=== PATIENT | female | born 1975 | race Caucasian/White ===

== ENCOUNTER 2020-09-02 00:32 | Observation (INO) ==
[2020-09-02] MEDS ORDERED: Naloxone 0.4 MG/ML INJ IVP PRN (03:37)
[2020-09-02] MEDS ORDERED: Ondansetron 4 MG/2 ML VIAL IVP PRN (03:37)
[2020-09-02] MEDS ORDERED: DilTIAZem 50 MG/50 ML IV.SOLN IVC SCH (04:30)
[2020-09-02 05:32] LABS: Basophils # 0.1 K/mcL (0.0-0.2); Basophils % 0.8 %; Eosinophils # 0.2 K/mcL (0.0-0.6); Eosinophils % 1.8 %; Immature Granulocytes % 0.4 % (0-4); Immature Platelets 18.3 % (1.1-6.1); Lymphocytes # 2.2 K/mcL (0.6-4.6); Lymphocytes % 25.3 %; Mean Corpuscular HGB Conc 33.3 g/dL (31.6-35.5); Mean Corpuscular Hemoglobin 28.9 pg (28.0-33.3); Mean Corpuscular Volume 86.8 fL (83.0-100.0); Mean Platelet Volume 13.9 fL (9.4-12.4); Monocytes # 0.4 K/mcL (0.0-1.3); Monocytes % 4.9 %; Neutrophils # 5.7 K/mcL (1.6-8.9); Platelet Count 125 K/mcL (140-400); Red Blood Count 4.84 M/mcL (3.82-4.97); Red Cell Distribution Width 13.1 % (11.5-14.5); Segmented Neutrophils % 66.8 %; White Blood Count 8.5 K/mcL (4.3-11.1)
[2020-09-02 05:45] LABS: Prothrombin Time 11.8 Seconds (9.4-12.1)
[2020-09-02 05:47] LABS: Activated Partial Thrombo Time 36.3 Seconds (26.0-36.0)
[2020-09-02 05:48] LABS: Bacteria,Urine Few per hpf (None-Few); Bilirubin,Urine Negative (Negative); Blood,Urine Trace (Negative); Clarity,Urine Turbid (Clear); Color,Urine Light-Yellow (Yellow); Glucose,Urine (UA) Normal (Normal); Ketones,Urine Negative (Negative); Leukocyte Esterase,Urine Large (Negative); Mucus,Urine Few per lpf (None-Few); Nitrite,Urine Negative (Negative); Protein,Urine Trace mg/dL (Neg-Trace); RBC,Urine 30-50 per hpf (0-3); Squamous Epithelial Cell,Urine Moderate per hpf (None-Few); Urobilinogen,Urine Normal (Normal); WBC,Urine 50-100 per hpf (0-3)
[2020-09-02 05:53] LABS: Alanine Aminotransferase 29 Units/L (7-52); Albumin 3.8 g/dL (3.5-5.7); Albumin/Globulin Ratio 1.5 (1.1-2.2); Alkaline Phosphatase 83 Units/L (34-104); Aspartate Amino Transferase 25 Units/L (13-39); BUN/Creatinine Ratio 11 (6-26); Bilirubin,Total 0.4 mg/dL (0.3-1.0); Blood Urea Nitrogen 9 mg/dL (6-20); Calcium 8.6 mg/dL (8.6-10.3); Carbon Dioxide 22 mEq/L (23-29); Chloride 110 mEq/L (98-107); Cholesterol 133 mg/dL (< 200); Globulin 2.6 g/dL (2.4-3.5); Glucose 162 mg/dL (70-105); HDL Cholesterol 22 mg/dL (40-59); LDL Cholesterol,Calculated 50 mg/dL (< 100); Magnesium 1.8 mg/dL (1.6-2.6); Osmolality,Calculated 294 (280-300); Potassium 3.5 mEq/L (3.5-5.1); Sodium 141 mEq/L (136-145); Total Protein 6.4 g/dL (6.4-8.9); Triglycerides 307 mg/dL (< 150); Troponin I < 0.03 ng/mL (< 0.04); eGFR For African Americans > 60 (> 60); eGFR For Non-African Americans > 60 (> 60)
[2020-09-02] MEDS ORDERED: Perflutren Lipid Microsphere 1.3 ML in 0.9 % Sodium Chloride 8.7 ML IVP PRN (07:14)
[2020-09-02] MEDS ORDERED: *HR* Enoxaparin 100 MG/ML SYRINGE SQ SCH (12:00)
[2020-09-02] MEDS: Nystatin Cream 15 GM TUBE TP SCH ×2 (12:02→20:44)
[2020-09-02] MEDS: DilTIAZem CD (24hr) 120 MG CAP.ER.24H PO SCH (14:49)
[2020-09-02] MEDS ORDERED: Apixaban 5 MG TABLET PO SCH (21:00)
[2020-09-02] MEDS ORDERED: cefTRIAXone 1,000 MG in 0.9 % Sodium Chloride Mini Bag 100 ML IVPB SCH (23:00)
[2020-09-02] MEDS: *HR* Enoxaparin 100 MG/ML SYRINGE SQ SCH ×2 (23:30)
[2020-09-03 03:44] LABS: BUN/Creatinine Ratio 10 (6-26); Blood Urea Nitrogen 8 mg/dL (6-20); Carbon Dioxide 25 mEq/L (23-29); Chloride 108 mEq/L (98-107); Potassium 3.9 mEq/L (3.5-5.1); Sodium 139 mEq/L (136-145)
[2020-09-03 03:45] LABS: Calcium 8.6 mg/dL (8.6-10.3); Glucose 139 mg/dL (70-105); Osmolality,Calculated 289 (280-300); eGFR For African Americans > 60 (> 60); eGFR For Non-African Americans > 60 (> 60)
[2020-09-03 04:10] LABS: Hematocrit 41.8 % (35.3-44.9); Hemoglobin 13.8 g/dL (11.5-15.4); Mean Corpuscular Hemoglobin 29.4 pg (28.0-33.3); Mean Corpuscular Volume 89.1 fL (83.0-100.0); Mean Platelet Volume 13.9 fL (9.4-12.4); Red Blood Count 4.69 M/mcL (3.82-4.97); Red Cell Distribution Width 13.3 % (11.5-14.5); White Blood Count 7.3 K/mcL (4.3-11.1)
[2020-09-03] MEDS: *HR* Enoxaparin 100 MG/ML SYRINGE SQ SCH ×2 (05:57→17:20)
[2020-09-03] MEDS ORDERED: Regadenoson 0.4 MG/5 ML SYRINGE IVP ONE (06:26)
[2020-09-03] MEDS: DilTIAZem CD (24hr) 120 MG CAP.ER.24H PO SCH (10:32)
[2020-09-03] MEDS: Nystatin Cream 15 GM TUBE TP SCH ×2 (10:33→21:39)
[2020-09-03] MEDS: Aspirin Enteric Coated 81 MG Tablet PO SCH (12:58)
[2020-09-03 14:50] LABS: INR 1.1; Prothrombin Time 12.6 Seconds (9.4-12.1)
[2020-09-03] MEDS ORDERED: Warfarin perPT PO PRN (18:00)
[2020-09-03] MEDS ORDERED: *HR* Warfarin 5 MG TABLET PO ONE (18:00)
[2020-09-04] MEDS: *HR* Enoxaparin 100 MG/ML SYRINGE SQ SCH ×2 (05:09→17:21)
[2020-09-04 07:22] LABS: INR 1.1; Prothrombin Time 12.9 Seconds (9.4-12.1)
[2020-09-04 07:36] LABS: Hemoglobin 13.8 g/dL (11.5-15.4); Mean Platelet Volume 13.7 fL (9.4-12.4); Red Cell Distribution Width 13.2 % (11.5-14.5)
[2020-09-04 07:38] LABS: Hematocrit 41.6 % (35.3-44.9); Immature Platelets 20.9 % (1.1-6.1); Mean Corpuscular HGB Conc 33.2 g/dL (31.6-35.5); Mean Corpuscular Hemoglobin 28.8 pg (28.0-33.3); Mean Corpuscular Volume 86.7 fL (83.0-100.0); Red Blood Count 4.8 M/mcL (3.82-4.97); White Blood Count 7.3 K/mcL (4.3-11.1)
[2020-09-04 07:56] LABS: BUN/Creatinine Ratio 10 (6-26); Blood Urea Nitrogen 8 mg/dL (6-20); Calcium 9.2 mg/dL (8.6-10.3); Carbon Dioxide 25 mEq/L (23-29); Chloride 107 mEq/L (98-107); Glucose 141 mg/dL (70-105); Osmolality,Calculated 289 (280-300); Sodium 139 mEq/L (136-145); eGFR For African Americans > 60 (> 60); eGFR For Non-African Americans > 60 (> 60)
[2020-09-04 08:01] LABS: Estimated Average Glucose 180 mg/dl
[2020-09-04] MEDS: DilTIAZem CD (24hr) 120 MG CAP.ER.24H PO SCH (09:00)
[2020-09-04] MEDS: Aspirin Enteric Coated 81 MG Tablet PO SCH (09:00)
[2020-09-04] MEDS: Nystatin Cream 15 GM TUBE TP SCH ×2 (09:01→20:30)
[2020-09-04] MEDS ORDERED: *HR* Dextrose 50 % in Water (Vial) 50 ML VIAL IVP PRN (11:44)
[2020-09-04] MEDS ORDERED: D5% in Water 1,000 ML IVC PRN (11:44)
[2020-09-04] MEDS ORDERED: Dextrose Gel 15 GM/37.5 ML TUBE PO PRN ×2 (11:44)
[2020-09-04] MEDS: Insulin LISPRO 300 UNITS/3 ML VIAL SQ SCH (16:39)
[2020-09-04] MEDS ORDERED: *HR* Warfarin 5 MG TABLET PO ONE (18:00)
[2020-09-05 01:15] LABS: Red Blood Count 4.67 M/mcL (3.82-4.97); Red Cell Distribution Width 13.2 % (11.5-14.5)
[2020-09-05 01:17] LABS: Hematocrit 39.8 % (35.3-44.9); Hemoglobin 13.5 g/dL (11.5-15.4); Immature Platelets 20.4 % (1.1-6.1); Mean Corpuscular HGB Conc 33.9 g/dL (31.6-35.5); Mean Corpuscular Hemoglobin 28.9 pg (28.0-33.3); Mean Corpuscular Volume 85.2 fL (83.0-100.0); Mean Platelet Volume 13.6 fL (9.4-12.4); White Blood Count 7.8 K/mcL (4.3-11.1)
[2020-09-05 01:25] LABS: INR 1.1; Prothrombin Time 13.1 Seconds (9.4-12.1)
[2020-09-05] MEDS: *HR* Enoxaparin 100 MG/ML SYRINGE SQ SCH (06:05)
[2020-09-05] MEDS: Aspirin Enteric Coated 81 MG Tablet PO SCH (08:06)
[2020-09-05] MEDS: DilTIAZem CD (24hr) 120 MG CAP.ER.24H PO SCH (08:06)
[2020-09-05] MEDS: Insulin LISPRO 300 UNITS/3 ML VIAL SQ SCH (08:11)
[2020-09-05] MEDS: Nystatin Cream 15 GM TUBE TP SCH (08:13)
[2020-09-05 11:09] VITALS: BP 142/90
[2020-09-05] MEDS ORDERED: *HR* Warfarin 10 MG TABLET PO ONE (18:00)
== END 2020-09-05 14:42 | disposition home or self-care (01) ==
LOC: 3BNU
PROVIDERS: ADMIT Internal Medicine; ATTEND Internal Medicine